=== PATIENT | male | born 1980 | race African-American/Black ===

== ENCOUNTER 2024-03-20 09:15 | Emergency (ER) | payer OTHER, SELFPAY ==
[2024-03-20 09:18] VITALS: BP 131/80; PULSE 87; RESP 16; TEMP 36.4; O2SAT 98
--- NOTE | 2024-03-20 09:32 | ED_ITS ---
HPI - Back Pain/Injury General Chief Complaint: Back Pain/Injury Stated Complaint: back pain Time Seen by Provider: 03/20/24 09:17 History of Present Illness HPI Narrative: Patient is a 44-year-old male presents to the ER with left flank pain that started approximately 2 days ago. He reports he has taken Aleve at home but is not given him any relief. Patient reports he has history of kidney stones and has had to several lithotripsies in the past. He denies any current urinary symptoms or visible blood in his urine. Patient reports he drove himself to the ER, but he would be able to get a ride home if he were to require narcotic administration for pain relief. He endorses history of high blood pressure and anxiety, but denies any history of diabetes, cardiac conditions, or recent fevers. Patient also endorses nausea and vomiting Related Data Allergies Allergy/AdvReac Type Severity Reaction Status Date / Time lisinopril Allergy Severe Anaphylaxis Verified 03/20/24 09:59 Latex, Natural Rubber Allergy Intermediate Rash Verified 03/20/24 09:59 Review of Systems 2 Review of Systems: All systems reviewed & are unremarkable except as noted in HPI and below Exam 2 Narrative: GENERAL: Well appearing, well-nourished, non-toxic, in no acute distress. HEAD: Normocephalic, atraumatic. NECK: Supple. No adenopathy, no masses. RESPIRATORY: Airway patent, respirations nonlabored. Clear to auscultation bilaterally, no rales, rhonchi, wheezing. CARDIOVASCULAR: Regular rate and rhythm without murmurs, rubs, or gallops. Peripheral pulses 2+ and equal bilaterally. ABDOMINAL: Soft, nontender, nondistended, no hepatosplenomegaly. Normoactive BS. MUSCULOSKELETAL: Moves all extremities. Strength/ROM intact without gross deformities. SKIN: Warm, dry, normal color. No rashes. NEURO: A&O X3. Speech clear. Cranial nerves II-XII grossly intact. Steady gait. No ataxic movements. PSYCHIATRIC: Appropriate mood and affect. Normal interaction. Course Vital Signs Vital signs: Vital Signs Temperature 36.4 C 03/20/24 09:18 Pulse Rate 87 03/20/24 09:18 Respiratory Rate 16 03/20/24 09:18 Blood Pressure 131/80 03/20/24 09:18 Pulse Oximetry 98 03/20/24 09:18 Temperature 36.6 C 03/20/24 11:09 Pulse Rate 72 03/20/24 11:09 Respiratory Rate 16 03/20/24 11:09 Blood Pressure 113/67 03/20/24 11:09 Pulse Oximetry 98 03/20/24 11:09 MDM - Back Pain/Injury MDM Narrative Medical decision making narrative: Patient is a 44-year-old male presents to the ER with left flank pain that started approximately 2 days ago. He reports he has taken Aleve at home but is not given him any relief. Patient reports he has history of kidney stones and has had to several lithotripsies in the past. He denies any current urinary symptoms or visible blood in his urine. Patient reports he drove himself to the ER, but he would be able to get a ride home if he were to require narcotic administration for pain relief. He endorses history of high blood pressure and anxiety, but denies any history of diabetes, cardiac conditions, or recent fevers. Patient also endorses nausea and vomiting. Labs Ordered: CBC, CMP, COVID/flu/RSV swab Imaging Ordered: None necessary Medications Ordered: 1 L normal saline IV bolus, Toradol 15 mg IV, Tylenol 1 g p.o., Zofran 4 mg Results: Patient's urinalysis indicated 1+ protein but no blood. His CMP and CBC were unremarkable. Diagnosis: Low back pain Patient Education/Shared MDM: Results shared with patient. He was offered a CT scan to rule out kidney stones but he endorses feeling better after medication administration. Patient is opting for a prescription of muscle relaxants and Aleve. He verbalizes he will come if his symptoms worsen. Patient verbalizes understanding and is agreement with plan of discharge. Vital signs stable at time of discharge. All questions answered. Differential Diagnosis Differential diagnosis: Likely sciatica, strain of lumbar region and pyelonephritis Lab Data Attestation: I reviewed the patient's lab results. 03/20/24 10:13 03/20/24 10:13 Labs: Lab Results 03/20/24 03/20/24 Range/Units 10:13 10:19 WBC 6.7 (4.5-10.0) K/mm3 RBC 4.56 L (4.6-6.20) M/mm3 Hgb 13.7 L (14.0-18.0) g/dL Hct 40.7 L (42.0-52.0) % MCV 89.3 (80-100) fl MCH 30.0 (26-34) pg MCHC 33.7 (32-36) g/dl RDW 13.8 (11.5-14.5) % Plt Count 262 (150-375) k/mm3 MPV 9.4 (7.4-10.4) fl Immature Gran % (Auto) 0.3 (0-0.5) % Neut % (Auto) 53.8 (45.5-73.1) % Lymph % (Auto) 35.6 (18.3-44.2) % [place] % (Auto) 9.0 H (2.6-8.5) % Eos % (Auto) 1.0 (0-4.4) % Baso % (Auto) 0.3 (0.2-1.2) % Lymph # (Auto) 2.38 (0.9-3.2) K/mm3 [place] # (Auto) 0.6 (0.1-0.6) K/mm3 Eos # (Auto) 0.1 (0-0.3) K/mm3 Baso # (Auto) 0.0 (0.0-0.1) K/mm3 Abs Immat Gran (auto) 0.02 (0.00-0.031) K/mm3 Absolute Neuts (auto) 3.6 (1.3-6.7) K/mm3 Absolute Nucleated RBC 0.000 (0.0-0.012) K/mm3 Nucleated RBC % 0.0 (0.0-0.2) % Sodium 139 (137-145) mmol/L Potassium 4.1 (3.4-5.0) mmol/L Chloride 103 (98-107) mmol/L Carbon Dioxide 26 (22-30) mmol/L Anion Gap 10 (4-12) mmol/L BUN 20 (9-20) mg/dL Creatinine 1.08 (0.7-1.3) mg/dL Estim Creat Clear Calc 104 ml/min Estimated GFR > 60 (59 - ) Glucose 109 (65-110) mg/dL Calcium 9.0 (8.4-10.2) mg/dL Total Bilirubin 0.5 (0.2-1.3) mg/dL AST 37 (17-59) U/L ALT 28 (6-50) U/L Alkaline Phosphatase 94 (38-126) U/L Total Protein 8.0 (6.3-8.2) g/dL Albumin 4.2 (3.5-5.1) g/dL Urine Color Yellow (Yellow) Urine Appearance Clear (Clear) Urine pH 5.5 (5.0-9.0) Ur Specific Eleanor 1.031 (1.001-1.035) Urine Protein 1+ H (Negative) mg/dL Urine Glucose (UA) Negative (Negative) mg/dL Urine Ketones Trace H (Negative) mg/dL Ur Blood (Man) Negative (Negative) Urine Nitrate Negative (Negative) Urine Bilirubin Negative (Negative) Urine Urobilinogen 1.0 (<2.0) mg/dL Add Ur Microanalysis Reviewed Leukocyte Esterase Rfl Negative (Negative) CATHI/UL Urine RBC 0-2 (0-2) /hpf Urine WBC 0-5 (0-3) /hpf Ur Squamous Epith Cells None seen (Few) /hpf Urine Bacteria None seen /hpf Urine Casts 0-2 Urine Mucus Present /lpf Sperm Presence Present Influenza A (RT-PCR) Negative (Negative) Influenza B (RT-PCR) Negative (Negative) RSV (RT-PCR) Negative (Negative) SARS-CoV-2 RNA (RT-PCR) Negative (Negative) Imaging Data Attestation: I personally reviewed and interpreted this imaging study as follows: Discharge Plan Discharge Clinical Impression: Strain of lumbar region Patient Disposition: Home, Self-Care Condition: Stable Instructions: Antibiotic Form, Acute Low Back Pain (ED) Additional Instructions: Please return to the ER with an worsening symptoms. Follow-up with primary care provider in the next 2-3 days. Take all medications as prescribed. Patient Language: Japanese Prescriptions: New naproxen 500 mg tablet 500 mg PO BID PRN (Reason: pain) Qty: 12 0RF cyclobenzaprine 5 mg tablet 5 mg PO TID PRN (Reason: muscle spasm) Qty: 20 0RF Follow-up/Referrals: PHYSICIAN NOT ON STAFF,NONSTAFF [Non-Staff] - Time of Disposition: 12:51
[2024-03-20] MEDS: KETOROLAC 15 MG/ML VIAL (*BKC) IV PUSH (10:10)
[2024-03-20] MEDS: ONDANSETRON INJ 4 MG/2 ML VIAL IV PUSH (10:10)
[2024-03-20] MEDS: SODIUM CHLORIDE 0.9% IV 1,000 ML 999 ML IV CONT (10:11)
[2024-03-20] MEDS: ACETAMINOPHEN 500 MG TABLET 1000 MG PO (10:11)
[2024-03-20 10:29] LABS: Basophils Percent Auto 0.3 % (0.2-1.2); Eosinophils Absolute Auto 0.1 K/mm3 (0-0.3); Hematocrit 40.7 % (42.0-52.0); Hemoglobin 13.7 g/dL (14.0-18.0); Immature Granulocyte Absolute 0.02 K/mm3 (0.00-0.031); Immature Granulocyte Percent A 0.3 % (0-0.5); Lymphocytes Absolute Auto 2.38 K/mm3 (0.9-3.2); Lymphocytes Percent Auto 35.6 % (18.3-44.2); Mean Corpuscular HGB Conc 33.7 g/dl (32-36); Mean Corpuscular Volume 89.3 fl (80-100); Mean Platelet Volume 9.4 fl (7.4-10.4); Monocytes Absolute Auto 0.6 K/mm3 (0.1-0.6); Neutrophils Absolute Auto 3.6 K/mm3 (1.3-6.7); Neutrophils Percent Auto 53.8 % (45.5-73.1); Platelet Count Result 262 k/mm3 (150-375); Red Blood Count 4.56 M/mm3 (4.6-6.20); Red Cell Distribution Width 13.8 % (11.5-14.5); White Blood Count 6.7 K/mm3 (4.5-10.0)
[2024-03-20 10:40] LABS: Add Urine Microscopic? YES; Appearance Urine Clear (Clear); Bacteria Urine None Seen /hpf; Bilirubin Urine Negative (Negative); Blood Urine Negative (Negative); Color Urine Yellow (Yellow); Glucose Urine UA Negative (Negative); Ketones Urine Trace mg/dL (Negative); Leukocyte Esterase Ur Negative LEU/UL (Negative); Mucus Urine Present /lpf; Need Manual Microscopic Reviewed; Nitrate Urine Negative (Negative); Non Pathogenic Casts 0-2; Protein Urine 1+ mg/dL (Negative); RBC Urine 0-2 /hpf (0-2); Specific Grav Ur 1.031 (1.001-1.035); Spermatozoa Urine Present; Squamous Epithelial Cell Urine None Seen /hpf (Few); WBC Urine 0-5 /hpf (0-3); pH Urine 5.5 (5.0-9.0)
[2024-03-20 10:42] LABS: Alanine Aminotransferase 28 U/L (6-50); Albumin Level 4.2 g/dL (3.5-5.1); Alkaline Phosphatase 94 U/L (38-126); Anion Gap 10 mmol/L (4-12); Aspartate Amino Transferase 37 U/L (17-59); Bilirubin,Total 0.5 mg/dL (0.2-1.3); Blood Urea Nitrogen 20 mg/dL (9-20); Carbon Dioxide 26 mmol/L (22-30); Chloride 103 mmol/L (98-107); Estimated CRCL calculation 104 ml/min; Estimated Glomerular Filt Rate > 60; Glucose 109 mg/dL (65-110); Potassium 4.1 mmol/L (3.4-5.0); Sodium 139 mmol/L (137-145)
[2024-03-20 11:04] LABS: Influenza A QL RT-PCR Negative (Negative); Influenza B QL RT-PCR Negative (Negative); RSV RNA, RT-PCR Negative (Negative); SARS-CoV-2 RNA PCR Negative (Negative)
[2024-03-20 11:09] VITALS: BP 113/67; PULSE 72; RESP 16; TEMP 36.6; O2SAT 98
[2024-03-20 13:04] VITALS: BP 117/65; PULSE 71; RESP 14; TEMP 36.6; O2SAT 98
== END 2024-03-20 13:05 | disposition home or self-care (01) ==
PROVIDERS: Emergency Provider Registered Nurse
DX: S39.012A Strain of muscle, fascia and tendon of lower back, initial encounter (principal); Z20.822 Contact with and (suspected) exposure to COVID-19; I10 Essential (primary) hypertension; Z87.442 Personal history of urinary calculi; X58.XXXA Exposure to other specified factors, initial encounter
CPT/HCPCS: 36415; 80053; 81001; 85025; 87637; 96361; 96372; 96374; 96375; 99284; A9270; J1885; J2405; J7030

== ENCOUNTER 2025-01-04 17:16 | Emergency (ER) | payer OTHER, SELFPAY ==
--- NOTE | ~2025-01-04 | CT_ITS ---
EXAMINATION: CT lumbar spine wo con COMPARISON: None HISTORY: fall TECHNIQUE: Axial images were obtained through the spine without IV contrast. Coronal, sagittal reconstruction images were obtained from the axial views. CT scan performed using dose optimization techniques including the following automated exposure control; adjustment of mA and/or kV; use of iterative reconstruction technique. Automatic exposure control was used to reduce radiation dose. Permanent radiation dose record is archived to PACS. FINDINGS: The vertebral heights are intact. No fracture or subluxation. Severe loss of disc height at L5-S1 with moderate to severe canal and foraminal stenosis Soft tissues unremarkable. Impression: No acute abnormality. Reviewed, dictated and finalized at location P. HOIST OPERATOR HELPER Impression: No acute abnormality.
--- NOTE | ~2025-01-04 | CT_ITS ---
EXAMINATION: CT brain wo con COMPARISON: None HISTORY: fall TECHNIQUE: Axial images were obtained through the brain without IV contrast. CT scan performed using dose optimization techniques including the following automated exposure control; adjustment of mA and/or kV; use of iterative reconstruction technique. Automatic exposure control was used to reduce radiation dose. Permanent radiation dose record is archived to PACS. FINDINGS: No acute infarct or parenchymal hemorrhage. No abnormal mass or mass effect. No midline shift. No extra-axial fluid collections. No hydrocephalus. . Mastoid air cells unremarkable. Sinuses and orbits unremarkable. No acute fracture. No significant facial or scalp soft tissue swelling evident. No radiopaque foreign body is seen. Impression: 1.No acute intracranial abnormality. Reviewed, dictated and finalized at location P. ING MACHINE HAND Impression: 1.No acute intracranial abnormality.
--- NOTE | ~2025-01-04 | CT_ITS ---
EXAMINATION: CT cervical spine wo con COMPARISON: None HISTORY: fall TECHNIQUE: Axial images were obtained through the spine without IV contrast. Coronal, sagittal reconstruction images were obtained from the axial views. CT scan performed using dose optimization techniques including the following automated exposure control; adjustment of mA and/or kV; use of iterative reconstruction technique. Automatic exposure control was used to reduce radiation dose. Permanent radiation dose record is archived to PACS. FINDINGS: The vertebral heights are intact. No fracture or subluxation. The disc heights are intact. Soft tissues unremarkable. Impression: No acute abnormality. Reviewed, dictated and finalized at location P. NESS CONSULTANT Impression: No acute abnormality.
[2025-01-04 17:20] VITALS: BP 138/85; PULSE 91; RESP 16; TEMP 36.4; O2SAT 100
--- NOTE | 2025-01-04 17:37 | ED.FALL ---
HPI - Fall General Chief Complaint: Fall Stated Complaint: fell down 1.5 flights of stairs Time Seen by Provider: 01/04/25 17:37 Focused HPI: This is a 44-year-old male that presents to the emergency department after a fall. Reports he slipped and fell down 13 steps. He does not believe he hit his head. He did not lose consciousness. Reports low back pain GENERAL: Well-appearing, well-nourished, and in no acute distress. HEAD: Normocephalic, atraumatic. C collar in place CHEST: Clear to auscultation. ?No respiratory distress. HEART: Regular rate and rhythm.? NEURO: ?Alert and oriented x3. Patient screened in triage and initial orders placed.? ?Additional care and disposition to be based upon?diagnostic testing and treatment. Related Data Allergies Allergy/AdvReac Type Severity Reaction Status Date / Time lisinopril Allergy Severe Anaphylaxis Verified 01/04/25 17:19 Latex, Natural Rubber Allergy Intermediate Rash Verified 01/04/25 17:19 Review of Systems Review of Systems: All systems reviewed & are unremarkable except as noted in HPI and below Exam Narrative: GENERAL: Well-appearing, well-nourished, and in no acute distress. HEAD: Normocephalic, atraumatic. EYES: EOMI. NECK: Supple. No adenopathy or masses. C collar in place CHEST: Clear to auscultation. No respiratory distress. No wheezes rales or rhonchi HEART: Regular rate and rhythm. No murmur heard. Normal peripheral pulses. EXTREMITIES: Normal range of motion. No edema or obvious deformity. SKIN: Warm, dry, no rash. NEURO: No focal deficits. Alert and oriented x3. Normal gait PSYCH: Normal mood and affect Course Vital Signs Vital signs: Vital Signs Temperature 97.6 F 01/04/25 17:20 Pulse Rate 91 01/04/25 17:20 Respiratory Rate 16 01/04/25 17:20 Blood Pressure 138/85 01/04/25 17:20 Pulse Oximetry 100 01/04/25 17:20 Oxygen Delivery Room Air 01/04/25 17:20 Temperature 97.6 F 01/04/25 17:20 Pulse Rate 91 01/04/25 17:20 Respiratory Rate 16 01/04/25 17:20 Blood Pressure 138/85 01/04/25 17:20 Pulse Oximetry 100 01/04/25 17:20 Oxygen Delivery Room Air 01/04/25 17:20 MDM - Fall MDM Narrative Medical decision making narrative: Patient presents emergency department after a fall down steps with low back pain. Unsure if he hit his head. He did not lose consciousness. His vitals are stable. He is neurologically intact. CT brain, cervical spine, lumbar spine without acute findings. Patient updated on his workup, agrees with plan of care. He is to follow up with primary provider. He was given warnings to return to the ER Differential Diagnosis Differential diagnosis: Likely compression fracture, concussion without loss of consciousness and other (Subdural hemorrhage) Imaging Data Radiologist's impression: ITS Impressions Head CT 01/04/25 17:59 Impression: 1.No acute intracranial abnormality. Lumbar Spine CT 01/04/25 18:01 Impression: No acute abnormality. Cervical Spine CT 01/04/25 18:02 Impression: No acute abnormality. Critical Care Time Critical Care Time Critical Care Time: No Discharge Plan Discharge Clinical Impression: Fall down steps Qualifiers: Encounter type: initial encounter Qualified Code(s): W10.8XXA - Fall (on) (from) other stairs and steps, initial encounter Low back pain Qualifiers: Chronicity: acute Back pain laterality: midline Sciatica presence: without sciatica Qualified Code(s): M54.50 - Low back pain, unspecified Patient Disposition: Home Condition: Stable Instructions: Back Pain (ED) Additional Instructions: Return to the ER if you experience weakness, numbness, bowel/bladder incontinence, or any other symptoms that are concerning to you Rest, use ice/heat, take anti-inflammatories (Aleve, Ibuprofen, Naproxen, etc) or Tylenol as needed for pain as well as muscle relaxer (Flexeril) as needed for pain. Muscle relaxers can make you drowsy, do not drive if you take this. Lidocaine patch to the area of pain as needed Follow up with your primary care doctor Patient Language: Fijian Prescriptions: New lidocaine 5 % adhesive patch,medicated 1 patch topical DAILY PRN (Reason: pain) Qty: 15 0RF Rx Instructions: leave on most painful area for up to 12 hrs cyclobenzaprine 10 mg tablet 10 mg PO TID PRN (Reason: muscle spasm) Qty: 10 0RF No Action naproxen 500 mg tablet 500 mg PO BID PRN (Reason: pain) Qty: 12 0RF cyclobenzaprine 5 mg tablet 5 mg PO TID PRN (Reason: muscle spasm) Qty: 20 0RF Follow-up/Referrals: PHYSICIAN NOT ON STAFF,NONSTAFF [Primary Care Provider]
--- OUTSIDE RECORDS SUMMARY | 2025-01-04 21:24 | XMS_ITS | Clinical Summary ---
Author Organization [facility] Address [address] [address] [place] [address] Phone Care Team Providers Care Manager People Name Role Phone Unavailable Primary Care Provider Unavailabl e Allergies Active Allergy Reactions Criticality Noted Date Comments Latex Rash Low 05/22/2024 Lisinopril Anaphylaxis High 05/13/2024 Medications atorvastatin 10 mg tablet (LIPITOR) Take 10 mg by mouth daily. Active bictegrav/emtric it/tenofov ala (BIKTARVY ORAL) Take by mouth daily. Active buPROPion HCL SR 150 mg tablet,12 hr sustained-releas e (WELLBUTRIN SR) Take 150 mg by mouth daily. Active carvediloL 25 mg tablet (COREG) Take 25 mg by mouth 2 times daily. Active FLUoxetine 20 mg tablet (PROzac) Take 20 mg by mouth daily. Active spironolactone 25 mg tablet (ALDACTONE) Take 25 mg by mouth daily. Active pantoprazole 40 mg tablet,delayed release (PROTONIX) Take 40 mg by mouth daily. Active cyanocobalamin 1,000 mcg Tablet Take 1,000 mcg by mouth daily. Active ferrous sulfate 325 mg (65 mg iron) tablet Take 325 mg by mouth daily. Active HYDROcodone-acet aminophen 2.5-108 mg/5 mL SolutionIndicati ons:Post-op pain Take 15 mL by mouth every 6 hours as needed for Pain, Severe. Max Daily Amount: 60 mL 300 mL 06/17/2024 Active ondansetron (ZOFRAN ODT) 4 mg Tablet, Rapid Dissolve Take 1 Tablet (4 mg) by mouth every 6 hours as needed for Nausea or Nausea/Vomi ting. 28 Tablet 06/18/2024 1:59 PM CDT 06/18/2024 Active Active Problems Problem Noted Date Diagnosed Date Type 2 diabetes mellitus with hyperglycemia 05/27 Post-operative nausea and vomiting 06/17/2024 Lower extremity edema 06/17/2024 Congestive heart failure 06/17/2024 Gastroesophageal reflux disease without esophagi tis 06/17/2024 Major depressive disorder in partial remission 0 06/17/2024 Chronic back pain 06/17/2024 Gout 06/17/2024 H/O hyperlipidemia 06/17/2024 HIV infection 06/17/2024 Encounters Date Type Department Care Team Description 12/29/2024 External Device Data [facility] Provider, Abstract 12/23/2024 External Device Data [facility] Provider, Abstract 12/22/2024 External Device Data [facility] Provider, Abstract 12/16/2024 External Device Data [facility] Provider, Abstract 12/15/2024 External Device Data [facility] Provider, Abstract 12/08/2024 External Device Data [facility] Provider, Abstract 12/01/2024 External Device Data [facility] Provider, Abstract 11/11/2024 External Device Data [facility] Provider, Abstract 11/10/2024 External Device Data [facility] Provider, Abstract 11/10/2024 External Device Data [facility] Provider, Abstract 10/27/2024 External Device Data [facility] Provider, Abstract 10/27/2024 External Device Data [facility] Provider, Abstract 10/13/2024 External Device Data [facility] Provider, Abstract from Last 3 Months Immunizations Immunization Administration Dates Next Due (ADACEL/BOOSTRIX)(10 YR UP) TDAP VACCINE, 0.5ML, IM 10/27/2021 (GARDASIL 9)(9-45 YRS) HUMAN PAPILLOMAVIRUS VACCINE, TYPES 6, 11, 16, 18, 31, 33, 45, 52, 58, NONAVALENT (9VHPV), 2 OR 3 DOSE, IM 12/25/2021,10/27/2021,12/26/2020 (JYNNEOS)(18 YR UP PRIMARY S ERIES AND BOOSTER) SMALLPOX,MONKEYPOX VAC, LIVE(PF) 0.5X TO 3.95X 10EXP8/0.5ML SUBCUT OR ID SUSP 10/11/2021 (MENACTRA)(9 MO-55 YR) MENIN GOCOCCAL POLYSACCHARIDE A, C, Y AND W-135 DIPTHERIA TOXOID CONJUGATE VACCINE, (PF), 0.5ML, IM 12/25/2021,10/27/2021 (PNEUMOVAX 23)(50 YRS UP) PN EUMOCOCCAL POLYSACCHARIDE (PPV23) 0.5 ML, IM 12/18/2019 (PREVNAR 13)(6 WKS UP) PNEUM OCOCCAL CONJUGATE (PCV13) 0.5 ML, IM 10/27/2021 (SPIKEVAX) (12 YRS UP PRIMAR Y SERIES) COVID-19 VACCINE - MRNA-1273(PF) 100 MCG/0.5 ML IM SUSP 03/20/2021 INFLUENZA VACCINE QUADRIVALE NT 6 MOS UP CELL DERIVED PF IM 12/14/2022,12/25/2021 INFLUENZA VACCINE QUADRIVALE NT 6 MOS UP PF IM 2023,02/20/2021 Influenza, Unspecified Formulation 11/28/2017 Social History Tobacco Use Types Packs/Day Years Used Date Smoking Tobacco: Never Smokeless Tobacco: Never Tobacco Cessation:Counseling Given: Not Answered Alcohol Use Standard Drinks/Week Comments Not Currently 2 (1 standard drink = 0.6 oz pur e alcohol) 1 -2 x week Feeling Safe Answer Date Recorded Are you in a relationship wi th someone who hurts you emotionally and/or physically? No 06/17/2024 Food Insecurity Answer Date Recorded Patient needs follow up regardin 06/17/2024 Transportation Needs Answer Date Record ed Patient needs follow up regardin 06/17/2024 Utility Needs Answer Date Recorded Patient needs follow up regardin 06/17/2024 Sex and Gender Information Value Date Recorded Sex Assigned at Not on file Legal Sex Male 5:50 PM CDT Gender Identity Not on file Sexual Orientation Not on file Last Filed Vital Signs Vital Sign Reading Time Taken Comments Blood Pressure 141/82 06/18/2024 10:56 AM CDT Pulse 77 06/18/2024 10:56 AM CDT Temperature 36.8 C (98.2 F) 06/18/2024 1:35 PM CDT Respiratory Rate 20 06/18/2024 10:5 6 AM CDT Oxygen Saturation 98% 06/18/2024 10: 56 AM CDT Inhaled Oxygen Concentration - - Weight 141.4 kg (311 lb 12.8 oz) 06/17/2024 4:00 PM CDT Height 180.3 cm (5' 11) 06/17/2024 4:20 PM CDT Body Mass Index 43.49 06/17/2024 4:00 PM CDT Plan of Treatment Health Maintenance Due Date Last Done Comments DIABETES ANNUAL FOOT EXAM 01/29/1998 DIABETES ANNUAL RETINAL EXAM 01/29/1998 DIABETES MICROALBUMIN ANNUAL SCREEN 01/29/1998 LDL CHOLESTEROL ANNUAL 01/29/1998 HEPATITIS B VACCINES (1 of 3 - 19+ 3-dose series) 01/29/1999 DIABETES HBA1C Q 6 MONTHS 01/25/2016 07/26/2015 HPV VACCINES (3 - Risk male 3-dose series) 04/24/2022 12/25/2021, 10/27/2021, 12/26/2020 INFLUENZA VACCINE (#1) 2024 , 12/14/2022, 12/25/2021, Additional history exists COVID-19 Vaccine (2024-2 6 season) 2024 03/21/2022, 10/04/2021, 03/20/2021, Additional history exists DTAP/TDAP/TD VACCINES (2 - T d or Tdap) 10/28/2031 10/27/2021 Medical Devices Implanted Type Area Silk Blocker Device Identifier Shelf Expiration Date Model / Serial / Lot Seamguard Endopath 60 [id number] - [id number] Implanted:Qt y: 1 on 06/17/2024 by Matthew Renee MD at [facility] N/A: Stom[employer] [id number] 03/18/2027 [id number] / / [id number] Seamguard Endopath 60 [id number] - [id number] Implanted:Qt y: 1 on 06/17/2024 by Matthew Renee MD at [facility] N/A: Stomach [employer] [id number] 03/18/2027 [id number] / / [id number] Seamguard Endopath 60 [id number] - [id number] Implanted:Qt y: 1 on 06/17/2024 by Matthew Renee MD at [facility] N/A: Stomach [employer] [id number] 03/18/2027 [id number] / / [id number] Seamguard Endopath 60 [id number] - [id number] Implanted:Qt y: 1 on 06/17/2024 by Matthew Renee MD at [facility] N/A: Stomach [employer] [id number] 03/18/2027 [id number] [id number] / / [id number] Seamguard Endopath 60 [id number] - [id number] Implanted:Qt y: 1 on 06/17/2024 by Matthew Renee MD at [facility] N/A: Stomach [employer] [id number] 03/18/2027 [id number] / / [id number] Training Engineer Ligamax Endo Multi Clip 5mm [id number] - [id number] Implanted:Qt y: 1 on 06/17/2024 by Matthew Renee MD at [facility] Clip N/A: Stomach [employer] 02/24/2029 [id number] / / [id number] Insurance [address] [place] [id number] [place] [id number] RX [employer] Member Subscriber Plan / Payer (Ef fective 2024-Present) Name:Will Hair Jr. Relation to Subscriber:Not on file Name:Will Hair Jr. Subscriber ID:Not on file Date of :1980 Payer ID:Not on file Group ID:[id number] Type:RX Commercial Address: [place] Advance Directives For more information, please contact: [phone] * Full Code (Latest Code Status on File) Date Activated Date Inactivated Comments 06/17/2024 10:03 AM 06/18/2024 4:10 PM * Full Code Date Activated Date Inactivated Comments 06/17/2024 8:50 AM 06/17/2024 10:03 AM * Full Code Date Activated Date Inactivated Comments 05/22/2024 7:59 AM 05/22/2024 1:27 PM
--- OUTSIDE RECORDS SUMMARY | 2025-01-04 21:24 | XMS_ITS | Encounter Summary ---
Author Organization [facility] Address [address] [place] [address] Phone Care Team Providers Care Engineering Technical Specialist Name Role Phone No, Physician Primary Care Provider [phone] Encounter Details Date Type Department Care Team (Late st Contact Info) Description 03/12/2024 Orders Only [facility] Scanning, Provider Social History Tobacco Use Types Packs/Day Years Used Date Smoking Tobacco: Every Day Cigarettes Smokeless Tobacco: Never Alcohol Use Standard Drinks/Week Comments Not Currently 0 (1 standard drink = 0.6 oz pur e alcohol) Sex and Gender Information Value Date Recorded Sex Assigned at Not on file Legal Sex Male 12:01 AM CDT Gender Identity Not on file Sexual Orientation Not on file documented as of this encounter Plan of Treatment Not on file documented as of this encounter Procedures Procedure Name Priority Date/Time Associated Diagnosis Comments SCAN - LABS 03/12/2024 documented in this encounter Results * SCAN - LABS (03/12/2024) us Provider Scanning Final Result documented in this encounter Visit Diagnoses Not on filedocumented in this encounter Care Teams Engineering Technical Specialist Relationship Specialty Start Date End Date No, Physician PCP - General 06/19/18 documented as of this encounter
--- OUTSIDE RECORDS SUMMARY | 2025-01-04 21:24 | XMS_ITS | Clinical Summary ---
Author Organization [facility] Address [address] [place] [address] Care Team Providers Care Social Media Executive Name Role Phone Cecy Burdick MD Primary Care Provider [phone] Source Comments [facility],non-owned Affiliates and Associated Physician Practices is amultiple site organization consisting of ambulatory clinics and hospital sitesin [place], [place], [place] and [place]. This disclosure is being madepursuant to the Care Everywhere program and may not contain all information available regarding this patient. Last updated 17.[facility] [employer] Allergies Active Allergy Reactions Criticality Noted Date Comments Latex Rash Medium 09/04/2011 Lisinopril Anaphylaxis,Swelling High 10/22/2022 Tongue swelling Medications * Be aware that medications may not be up to date on this document. Alwaysverify current medications with the patient. atorvastatin (Lipitor) 10 MG tablet Take 1 (one) tablet by mouth once daily Active Biktarvy 50-200-25 MG 06/06/2024 Active buPROPion XL 24hr (Wellbutrin-XL) 150 MG tablet Take 1 (one) tablet by mouth once daily Active carvedilol (Coreg) 25 MG tablet Take 1 (one) tablet by mouth 2 times daily Active celecoxib (CeleBREX) 100 MG capsule Take 1 (one) capsule by mouth once daily Active cetirizine (ZyrTEC) 10 MG tablet Take 1 (one) tablet by mouth Active vitamin D3 (Cholecalcifero l) 25 MCG (1000 UNITS) tablet Take 1 (one) tablet by mouth once daily 06/19/2023 Active cyanocobalamin (Vitamin B-12) 1000 MCG tablet Take 1 (one) tablet by mouth once daily Active cyclobenzaprine (Flexeril) 5 MG tablet Take 1 (one) tablet by mouth 3 times daily as needed FOR MUSCLE SPASM 03/20/2024 Active vitamin D, ergocalciferol, (Drisdol) 1.25 MG (73377 UT) capsule 06/06/2024 Active ferrous sulfate EC 325 (65 Fe) MG tablet Take 1 (one) tablet by mouth once daily 04/07/2024 Active FLUoxetine (PROzac) 20 MG capsule Take 1 (one) capsule by mouth once daily 05/11/2024 Active fluticasone propionate (Flonase) 50 MCG/ACT nasal spray [place] 1 (one) spray into the nose once daily Active folic acid (Folvite) 1 MG tablet Take 2 (two) tablets by mouth once daily Active fluticasone hfa 110 (Flovent HFA 110) 110 MCG/ACT inhaler Inhale 1 (one) puff by mouth Active methocarbamol (Robaxin) 750 MG tablet TAKE 1 TABLET BY MOUTH EVERY 8 HOURS FOR 7 DAYS 05/19/2024 Active naproxen (Naprosyn) 500 MG tablet Take 1 (one) tablet by mouth 2 times daily as needed For pain. 03/20/2024 Active omeprazole (PriLOSEC) 20 MG capsule Take 1 (one) capsule by mouth once daily Active ondansetron, disintegrating, (Zofran ODT) 4 MG tablet TAKE 1 TABLET (4 MG) BY MOUTH EVERY 8 HOURS NEEDED FOR NAUSEA 06/02/2023 Active oxyCODONE-aceta minophen (Percocet) 7.5-325 MG tablet Take 1 (one) tablet by mouth every 6 hours as needed 05/20/2023 Active pantoprazole EC (Protonix) 40 MG tablet Take 1 (one) tablet by mouth once daily Active SUMAtriptan (Imitrex) 25 MG tablet Take by mouth. 05/23/2023 Active spironolactone- hydroCHLOROthia zide (Aldactazide 25) 25-25 MG tablet TAKE 1 TABLET BY MOUTH ONCE DAILY FOR 90 DAYS 05/11/2024 Active traMADol (Ultram) 50 MG tablet TAKE 1 TO 2 TABLETS BY MOUTH EVERY 6 HOURS NEEDED FOR PAIN 02/13/2024 Active zolpidem (Ambien) 10 MG tablet 1 (one) tablet 07/08/2023 Active Active Problems No known active problems Family History Medical History Relation Name Comments Cancer - Colon Father Relation Name Status Comments Father Mother Alive Social History Tobacco Use Types Packs/Day Years Used Date Smoking Tobacco: Former Cigarettes Tobacco Cessation:Counseling Given: Not Answered Alcohol Use Standard Drinks/Week Comments Yes 0 (1 standard drink = 0.6 oz pur e alcohol) Sex and Gender Information Value Date Recorded Sex Assigned at Not on file Legal Sex Male 2:[address] [employer] Gender Identity Not on file Sexual Orientation Not on file Last Filed Vital Signs Vital Sign Reading Time Taken Comments Blood Pressure 110/76 06/08/2024 9:16 AM CDT Pulse 98 06/08/2024 9:16 AM CDT Temperature 36.9 C (98.4 F) 06/08/2024 9:16 AM CDT Respiratory Rate - - Oxygen Saturation - - Inhaled Oxygen Concentration - - Weight 143.1 kg (315 lb 6.4 oz) 06/08/2024 9:16 AM CDT Height 175.3 cm (5' 9) 06/08/2024 9:16 AM CDT Body Mass Index 46.58 06/08/2024 9:16 AM CDT Plan of Treatment Health Maintenance Due Date Last Done Comments HIV SCREENING 01/29/1995 HEPATITIS C SCREENING 01/25/1998 DTAP/TDAP/TD VACCINES (1 - Tdap) 01/29/1999 HEPATITIS B VACCINE (1 of 3 - 19+ 3-dose series) 01/29/1999 HPV VACCINE (1 - 3-dose SCDM series) 01/29/2007 DEPRESSION SCREENING 02/26/2024 SCREENING FOR DIABETES 06/08/2024 COVID-19 VACCINE ( season) 2024 03/21/2022, 10/04/2021, 03/20/2021, Additional history exists INFLUENZA VACCINE (#1) 2024 , 12/14/2022, 12/25/2021, Additional history exists ZOSTER VACCINE (1 of 2) 01/29/2030 HIB VACCINE Aged Out No longer eligi ble based on patient's age to complete this topic MENINGOCOCCAL (Group B) VACCINE SHARED DECISION-MAKING Aged Out No longer eligible based on patient's age to complete this topic MENINGOCOCCAL GROUPS A/C/Y/W VACCINE Aged Out No longer eligible based on patient's age to complete this topic PNEUMOCOCCAL VACCINE Aged Out No long er eligible based on patient's age to complete this topic Insurance [facility] Care Teams Social Media Executive Relationship Specialty Start Date End Date Cecy Burdick MD [address] [place] [id number] PCP - General Internal Medicine 06/04/24
--- OUTSIDE RECORDS SUMMARY | 2025-01-04 21:24 | XMS_ITS | Clinical Summary ---
Author Organization [facility] Address [address] [address] Care Team Providers Care Professional Shopper Name Role Phone No, Physician Primary Care Provider [phone] Allergies Active Allergy Reactions Criticality Noted Date Comments Latex Rash Medium 09/04/2011 Lisinopril Angioedema High 09/22/2024 Medications bictegravir-emt ricitabine-teno fovir (BIKTARVY) 50-200-25 mg tabletIndicatio ns:HIV infection Take 1 tablet by mouth daily 30 tablet 3 09/22/2024 01/21/20 25 Active TiZANidine (ZANAFLEX) 2 mg capsule Take 1 capsule (2 mg total) by mouth 3 (three) times a day as needed for muscle spasms Active atorvastatin (LIPITOR) 10 mg tablet Take 1 tablet (10 mg total) by mouth daily Active carvediloL (COREG) 25 mg tablet Take 1 tablet (25 mg total) by mouth 2 (two) times a day with meals Active pantoprazole DR (PROTONIX) 40 mg EC tablet Take 1 tablet (40 mg total) by mouth daily Active spironolactone- hydroCHLOROthia zide (ALDACTAZIDE) 25-25 mg per tablet Take 1 tablet by mouth daily Active multivitamin with iron tablet Take 1 tablet by mouth daily Active BIOTIN ORAL Take by mouth Acti ve cyanocobalamin, vitamin B-12, 1,000 mcg/mL kit Inject 1,000 mcg as directed Active calcium carbonate-vitam in D3 1,250mg (500mg elemental) - 5 mcg (200 units) per tablet Take 1 tablet by mouth Active cetirizine (ZyrTEC) 10 mg tablet Take 1 tablet (10 mg total) by mouth daily Active cholecalciferol (VITAMIN D-3) 1,000 unit capsule Take 1 capsule (1,000 Units total) by mouth daily 01/31/2023 Active buPROPion XL (WELLBUTRIN XL) 150 mg 24 hr tablet Take 1 tablet (150 mg total) by mouth daily Active ergocalciferol (VITAMIN D) 50,000 unit capsule Take 1 capsule (50,000 Units total) by mouth once a week 11/03/2024 Active traZODone (DESYREL) 50 mg tablet Take 1 tablet (50 mg total) by mouth nightly as needed 10/28/2024 Active Active Problems Problem Noted Date Diagnosed Date HIV disease 01/04/2025 Chronic back pain 06/17/2024 Gastroesophageal reflux disease without esophagi tis 06/17/2024 Gout 06/17/2024 Ureterolithiasis 03/09/2023 Allergic rhinitis 08/22/2022 Lumbar spondylosis 04/18/2022 Hypersomnia with sleep apnea 11/30/2020 PTSD (post-traumatic stress disorder) 06/28/2014 Depression with anxiety 05/24/2014 IBS (irritable bowel syndrome) 05/24/2014 Encounters Date Type Department Care Team Description 11/10/2024 Telephone [facility] Medicine Infectious Diseases [address] [place] [phone] Lisseth Machado from Last 3 Months Immunizations Immunization Administration Dates Next Due HPV9 12/25/2021,10/27/2021,12/26/2020 Influenza, Quadrivalent, Spl it, Preservative Free, Intramuscular 2023,02/20/2021 Influenza, Trivalent, Cell C ulture-based MDCK, Preservative Free, Antibiotic Free, Intramuscular 12/14/2022,12/25/2021 Influenza, Unspecified 11/28/2017 Meningococcal MCV4P (Menactra) 12/25/2021,2021 Moderna SARS-CoV-2 Monovalen t Vaccination (12+ YRS) 03/20/2021 Moderna Sars-cov-2 Bivalent Vaccine 50 Mcg/0.5 mL (12+ YRS)-Blue/Davidson 03/21/2022 Pneumococcal Conjugate PCV 13 10/27/2021 Pneumococcal Polysaccharide PPV23 12/18/2019 Smallpox/monkeypox Vaccine, Live, Non-replicating (Jynneos) 10/11/2021 Tdap 10/27/2021 Surgical History Surgery Date Site/Laterality Comments BARIATRIC SURGERY 06/17/2024 Medical History Medical History Date Comments Hypertension Hyperlipidemia GERD (gastroesophageal reflux disease) History of herniated interve rtebral disc History of bariatric surgery 06/17/2024 sle zaynab gastrectomy CHF (congestive heart failure) (HCC) History of nephrolithiasis s/p l aser lithotripsy and L ureteral stent 05/02/23, stent removal 05/20/23 Family History Medical History Relation Name Comments Colon cancer Father was metastatic at time of diagnosis ~2013 Ovarian cancer Mother Relation Name Status Comments Father Mother Alive [...] Sign Reading Time Taken Comments Blood Pressure 104/69 09/22/2024 10:17 AM CDT Pulse 82 09/22/2024 10:17 AM CDT Temperature 36.9 C (98.4 F) 09/22/2024 10:17 AM CDT Respiratory Rate 12 06/19/2018 12:07 AM CDT Oxygen Saturation 96% 06/19/2018 1:40 AM CDT Inhaled Oxygen Concentration - - Weight 118.8 kg (262 lb) 09/22/2024 10:17 AM CDT Height - - Body Mass Index - - Plan of Treatment Health Maintenance Due Date Last Done Comments Depression Screening 1980 HLA B 5701 Typing 1980 Prostate Cancer Screening-PSA 1980 T Spot (quantiferon gold) 1980 Varicella Vaccines (1 of 2 - 13+ 2-dose series) 01/29/1993 G6PD 01/29/1998 Regular Well Visit/Exam 18-64 01/29/1998 Hepatitis A Vaccines (1 of 2 - Risk 2-dose series) 01/29/1999 Hepatitis B Vaccines (1 of 3 - 19+ 3-dose series) 01/29/1999 Zoster Vaccine (1 of 2) 01/29/1999 HPV Vaccines (3 - Risk male 3-dose series) 04/24/2022 12/25/2021, 10/27/2021, 12/26/2020 Proteinuria screening Urinalysis (UA) 04/03/2024 04/03/2023, 03/26/2023, 08/04/2014, Additional history exists Covid-19 Vaccine (6 - 2024-2 6 season) 2024 03/21/2022, 10/04/2021, 03/20/2021, Additional history exists Influenza Vaccine (#1) 2024 , 12/14/2022, 12/25/2021, Additional history exists Pneumococcal vaccine <65 (3 of 3 - PCV20 or PCV21) 12/17/2024 10/27/2021, 12/18/2019 HIV + Chlamydia and Gonorrhe a Screening (Urine) 09/22/2025 09/22/2024 HIV+ Chlamydia and Gonorrhea Screening (Rectal) 09/22/2025 09/22/2024 HIV+ Chlamydia and Gonorrhea Screening (Throat) 09/22/2025 09/22/2024 Hemoglobin A1C 09/22/2025 09/22/2024 Hepatitis A Screening 09/22/2025 09/22/2024 Hepatitis B Screening 09/22/2025 09/22/2024 Hepatitis C Screening 09/22/2025 09/22/2024 Lipid Panel 09/22/2025 09/22/2024 RPR Screening 09/22/2025 09/22/2024 DTaP/Tdap/Td Vaccine (2 - Td or Tdap) 10/28/2031 10/27/2021 Procedures Procedure Name Priority Date/Time Associated Diagnosis Comments HEPATITIS C ANTIBODY Routine 09/22/2024 11:42 AM CDT HIV disease (HCC) HEMOGLOBIN A1C Routine 09/22/2024 11:42 AM CDT HIV disease (HCC) LIPID PANEL Routine 09/22/2024 11:42 AM CDT HIV disease (HCC) HEPATITIS A ANTIBODY, TOTAL Routine 09/22/2024 11:42 AM CDT HIV disease (HCC) RPR Routine 09/22/2024 11:42 AM CDT HIV disease (HCC) from Last 3 Months or Most Recently Relevant to Health Maintenance Results * Hepatitis C antibody Blood (09/22/2024 11:42 AM CDT) Hep C Ab Nonreactive Nonreactive Comment:Antibodies to HCV no t detected. Does NOT exclude the possibility of recent exposure to HCV. Current interpretive data was last revised on 21 Blood 09/22/2024 11:4 2 AM CDT 09/22/2024 2:30 PM CDT us Lee Ann Conn MD LAB MICROBIOLOGY - GENERA L ORDERABLES Final Result Performing Organization Address City/[facility] Co de Phone Number [facility] [place] [address] * (ABNORMAL) Hepatitis A antibody, total Blood (09/22/2024 11:42 AM CDT) Hep A total Reactive(A ) Nonreactive Blood 09/22/2024 11:4 2 AM CDT 09/22/2024 2:30 PM CDT Lee Ann Conn MD LAB MICROBIOLOGY - GENERA L ORDERABLES Final Result Performing Organization Address City/State/[facility] Co de Phone Number [facility] Department [place] [address] * RPR Blood (09/22/2024 11:42 AM CDT) RPR Nonreactive Nonreactive Blood 09/22/2024 11:4 2 AM CDT 09/22/2024 2:30 PM CDT Lee Ann Conn MD LAB MICROBIOLOGY - GENERA L ORDERABLES Final Result Performing Organization Address [facility] de Phone Number [facility] [place] [address] * (ABNORMAL) Hemoglobin A1c (09/22/2024 11:42 AM CDT) Hgb A1C 5.8(H) 4.0 - 5.6 % Estimated Average Glucose 120 mg/dL [facility] Comment: The ADA recommends reporting an estimated Average Glucose (eAG) with all Hemoglobin A1c results using the equation derived from a study of 507 normal and diabetic adults. Minority populations were underrepresented and children were not included. (Diabetes Care 2020; 43(S1): S66-S76). The eAG is not equivalent to a fasting glucose. Blood 09/22/2024 11:4 2 AM CDT 09/22/2024 2:30 PM CDT Lee Ann Conn MD LAB BLOOD ORDERABLES Iesha l Result Performing Organization Address [facility] de Phone Number [facility] Department [place] [address] * Lipid panel (09/22/2024 11:42 AM CDT) Cholesterol 139 30 - 199 mg/dL Comment: Interpretive Data Ages < or = 19 years Acceptable: <170 mg/dL Borderline high: 170-199 mg/dL High: >or= 200 mg/dL Ages > or = 20 years Desirable: <200 mg/dL Borderline high: 200-239 mg/dL High: >or= 240 mg/dL Literature References: 1. Expert Panel on Integrated Guidelines for Cardiovascular Health and Risk Reduction in Children and Adolescents. Pediatrics 2011;128:S213 2. NCEP Expert Panel. Circulation 2004;110:227 Current Interpretive Data was last revised on 2017. Triglycerides 64 <=149 mg/dL [facility] Comment: Interpretive Data Ages < or = 9 years Acceptable: <75 mg/dL Borderline high: 75-99 mg/dL High: >or= 100 mg/dL Ages 10 to 20 years Acceptable: <90 mg/dL Borderline high: 90-129 mg/dL High: >or= 130 mg/dL Ages > or = 20 years Desirable: <150 mg/dL Borderline high: 150-199 mg/dL High: 200-499 mg/dL Very high: >or= 499 mg/dL Literature References: 1. Expert Panel on Integrated Guidelines for Cardiovascular Health and Risk Reduction in Children and Adolescents. Pediatrics 2011;128:S213 2. NCEP Expert Panel. Circulation 2004;110:227 Current Interpretive Data was last revised on 2017. HDL 43 >=40 mg/dL [facility] Comment: Interpretive Data Ages < or = 19 years Acceptable: >45 mg/dL Borderline low: 40-45 mg/dL Low: <40 mg/dL Ages > or = 20 years Desirable: >or= 60 mg/dL Low: <40 mg/dL Literature References: 1. Expert Panel on Integrated Guidelines for Cardiovascular Health and Risk Reduction in Children and Adolescents. Pediatrics 2011;128:S213 2. NCEP Expert Panel. Circulation 2004;110:227 Current Interpretive Data was last revised on 2017. LDL, calculated 83 <=129 mg/dL [facility] Comment: Interpretive Data Ages < or = 19 years Acceptable: <110 mg/dL Borderline high: 110-129 mg/dL High: >or= 130 mg/dL Ages > or = 20 years Optimal: <100 mg/dL Near optimal: 100-129 mg/dL Borderline high: 130-159 mg/dL High: >160 mg/dL Calculated using the Eusebio LDL-C estimating equation. This equation was implemented on 2023. Prior to this date LDL-C was estimated using the Friedewald equation. Literature References: 1. Expert Panel on Integrated Guidelines for Cardiovascular Health and Risk Reduction in Children and Adolescents. Pediatrics 2011;128:S213 2. NCEP Expert Panel. Circulation 2004;110:227 3. Eusebio Moreira al. JOCE Cardiol. 2020 June 25;5(5):540-548. doi: 10.1001/jamacardio.2020.0013 Current Interpretive Data was last revised on 2023. Non-HDL Cholesterol 96 mg/dL [facility] Comment: Interpretive Data Ages < or = 19 years Acceptable: <120 mg/dL Borderline high: 120-144 mg/dL High: >145 mg/dL Ages > or = 20 years When triglycerides are >200 mg/dL, Non-HDL cholesterol is a secondary target of therapy with treatment goals that are 30 mg/dL greater than the LDL cholesterol target. Literature References: 1. Expert Panel on Integrated Guidelines for Cardiovascular Health and Risk Reduction in Children and Adolescents. Pediatrics 2011;128:S213 2. NCEP Expert Panel. Circulation 2004;110:227 Current Interpretive Data was last revised on 2017. Chol/HDL ratio 3 [facility] Blood 09/22/2024 11:4 2 AM CDT 09/22/2024 2:30 PM CDT Lee Ann Conn MD LAB BLOOD ORDERABLES Iesha amaral Result [facility] [place] [address] from Last 3 Months or Most Recently Relevant to Health Maintenance Insurance [facility] H[facility]/PPO Address: [facility] [id number] [place] [id number] [facility] [employer] HMO/PPO Address: [place] [phone] Care Teams Professional Shopper Relationship Specialty Start Date End Date No, Physician PCP - General 06/19/18
[2025-01-04] MEDS: LIDOCAINE 5% PATCH 1 PATCH TRANSDERM (21:38)
[2025-01-04] MEDS: KETOROLAC 30 MG/ML VIAL (*BKC) IM (21:38)
== END 2025-01-04 21:45 | disposition home or self-care (01) ==
LOC: ANHED 21:22
PROVIDERS: Emergency Provider Physician Assistant
DX: M54.50 Low back pain, unspecified (principal); W10.8XXA Fall (on) (from) other stairs and steps, initial encounter
CPT/HCPCS: 70450; 72125; 72131; 96372; 99284; A9270; J1885